=== PATIENT | male | born 1960 | race Caucasian/White ===

== ENCOUNTER 2017-01-03 21:45 | Emergency (ER) | payer BC ==
[2017-01-03] MEDS ORDERED: Sodium Chloride 0.9% 10 ML Syringe FLUSH PRN (22:15)
[2017-01-03] MEDS ORDERED: Sodium Chloride 0.9% 2.5 ML Syringe FLUSH PRN (22:15)
[2017-01-03] MEDS ORDERED: Ketorolac 30 MG/ML SDV IVPUSH ONE ×2 (22:15→22:17)
[2017-01-03] MEDS ORDERED: Ondansetron 4 MG/2 ML SDV IVPUSH ONE (22:17)
[2017-01-03] MEDS ORDERED: Sodium Chloride 0.9% 1,000 ML IV SCH (22:30)
--- NOTE | 2017-01-03 22:35 | EDM.PDOC ---
ED HPI RENAL/ - General Chief Complaint: Flank Pain Stated Complaint: KIDNEY STONE Time Seen by Provider: 01/03/17 21:56 Source of Information: Reports: Patient History Limitations: Reports: No limitations - History of Present Illness INITIAL COMMENTS - FREE TEXT/NARRATIVE: HISTORY AND PHYSICAL: History of present illness: [56-year-old male with a history of prior kidney stone now presents emergent [facility] complaining of sudden onset of right flank pain around 6:30 PM tonight. Patient states this feels just like prior kidney stone. He has he within a few minutes is not worse with movement and he gets no relief no matter what the position is. It does wax and wane. Denies abdominal or pelvic pain. No penile or scrotal pain. No febrile or prodromal symptoms prior to onset of pain. ] Review of systems: As per history of present illness and below otherwise all systems reviewed and negative. Past medical history: As per history of present illness and as reviewed below otherwise noncontributory. Surgical history: As per history of present illness and as reviewed below otherwise noncontributory. Social history: No reported history of drug or alcohol abuse. Family history: As per history of present illness and as reviewed below otherwise noncontributory. Physical exam: HEENT: Atraumatic, normocephalic, pupils reactive, negative for conjunctival pallor or scleral icterus, mucous membranes moist, throat clear, neck supple, nontender, trachea midline. Lungs: Clear to auscultation, breath sounds equal bilaterally, chest nontender. Heart: S1S2, regular, negative for clicks, rubs, or JVD. Abdomen: Soft, nondistended, nontender. Negative for masses or hepatosplenomegaly. Right costovertebral tenderness. Left low back/CVA normal nontender Pelvis: Stable nontender. Genitourinary: Deferred. Rectal: Deferred. Extremities: Atraumatic, negative for cords or calf pain. Neurovascular unremarkable. Neuro: Awake, alert, oriented. Cranial nerves grossly unremarkable. Cerebellum unremarkable. Motor and sensory unremarkable throughout. Exam nonfocal. Diagnostics: CT abdomen and pelvis pending] Therapeutics: Toradol and IV fluids antiemetic] Impression: [Ureteral colic Right flank pain Plan: [Signs and symptoms consistent with ureteral colic in a patient with a known history of the same. He is well-appearing nontoxic. Full workup pending including CTA. Feels improved after analgesia] 3 mm stone proximal ureter otherwise unremarkable. UA negative for infection. Microscopic hematuria only. Patient stable and comfortable on multiple reexamines. No further workup or treatment indicated. Patient and spouse agree with outpatient followup with PCP for reevaluation and referral to urology as needed. Flomax prescribed. Patient aware to use NSAIDs and [place] as needed. Strict return precautions given Definitive disposition and diagnosis as appropriate pending reevaluation and review of above. - Related Data Allergies/ADRs: Allergies Allergy/AdvReac Type Severity Reaction Status Date / Time No Known Allergies Allergy Verified 01/03/17 21:58 Home Meds: Home Meds Multivitamins [Tab-A-Heather] 1 tab PO DAILY 01/03/17 [History] Hydrocodone/Acetaminophen [[place] 5-325 Tablet] 1 each PO Q4H PRN #16 tablet 04/15 [Rx] Tamsulosin [Flomax] 0.4 mg PO ONETIME #10 cap.er 01/04/17 [Rx] Past Medical History - Past Health History Medical/Surgical History: Denies Medical/Surgical History Genitourinary History: Reports: Renal calculus Other Genitourinary History: right kidney stones - Infectious Disease History Infectious Disease History: Reports: Chicken pox, Measles, Mumps - Past Surgical History GI Surgical History: Reports: Hernia, abdominal Social & Family History - Family History Family Medical History: Noncontributory - Tobacco Use Smoking Status *Q: Never Smoker Second Hand Smoke Exposure: No - Caffeine Use Caffeine Use Comment: 1drink/2weeks - Alcohol Use Days Per Week of Alcohol Use: 4 Number of Drinks Per Day: 2 Total Drinks Per Week: 8 - Recreational Drug Use Recreational Drug Use: No ED ROS GENERAL - Review of Systems Review Of Systems: See Below (History of present illness) ED EXAM, RENAL/ - Physical Exam Exam: See Below (History of present illness) Course - Vital Signs Last Recorded V/S: Last Vital Signs Temp 36.4 C 01/04/17 01:29 Pulse 57 L 01/04/17 01:29 Resp 18 01/04/17 01:29 BP 143/81 H 01/04/17 01:29 Pulse Ox 95 01/04/17 01:29 - Orders/Labs/Meds Orders: Active Orders 24 hr Category Date Time Status Abdomen Pelvis w wo Cont [CT] Stat Exams 01/03/17 22:17 Ordered Peripheral IV Insertion Adult [OM.PC] Stat Oth 01/03/17 22:15 Ordered Labs: Laboratory Tests 01/03/17 01/03/17 01/03/17 Range/Units 22:00 22:10 22:10 WBC 11.31 H (4.0-11.0) K/uL RBC 4.87 (4.50-5.90) M/uL Hgb 13.7 (13.0-17.0) g/dL Hct 39.6 (38.0-50.0) % MCV 81.3 (80.0-98.0) fL MCH 28.1 (27.0-32.0) pg MCHC 34.6 (31.0-37.0) g/dL RDW Std Deviation 38.6 (28.0-62.0) fl RDW Coeff of [place] 13 (11.0-15.0) % Plt Count 89 L (150-400) K/uL MPV 10.80 (7.40-12.00) fL Neut % (Auto) 85.3 H (48.0-80.0) % Lymph % (Auto) 8.8 L (16.0-40.0) % [place] % (Auto) 5.4 (0.0-15.0) % Eos % (Auto) 0.3 (0.0-7.0) % Baso % (Auto) 0.2 (0.0-1.5) % Neut # (Auto) 9.7 H (1.4-5.7) K/uL Lymph # (Auto) 1.0 (0.6-2.4) K/uL [place] # (Auto) 0.6 (0.0-0.8) K/uL Eos # (Auto) 0.0 (0.0-0.7) K/uL Baso # (Auto) 0.0 (0.0-0.1) K/uL Nucleated RBC % 0.0 /100WBC Nucleated RBCs # 0 K/uL Sodium 138 (136-146) mmol/L Potassium 4.2 (3.5-5.1) mmol/L Chloride 107 (98-110) mmol/L Carbon Dioxide 21 (21-31) mmol/L BUN 25 H (6.0-23.0) mg/dL Creatinine 1.3 (0.6-1.5) mg/dL Est Cr Clr Drug Dosing 65.51 mL/min Estimated GFR (MDRD) 57.1 ml/min Glucose 116 H (60-110) mg/dL Calcium 8.8 (8.8-10.8) mg/dL Total Bilirubin 0.4 (0.1-1.5) mg/dL AST 25 (5-40) IU/L ALT 22 (8-54) IU/L Alkaline Phosphatase 46 (40-150) Total Protein 6.8 (6.0-8.0) g/dL Albumin 4.1 (3.5-5.0) g/dL Globulin 2.7 (2.0-3.5) g/dL Albumin/Globulin Ratio 1.5 (1.3-2.8) Lipase 15 (7-80) U/L Urine Color YELLOW Urine Appearance SLT CLOUDY Urine pH 6.5 (5.0-8.0) Ur Specific [place] 1.025 (1.001-1.035) Urine Protein NEGATIVE (NEGATIVE) mg/dL Urine Glucose (UA) NEGATIVE (NEGATIVE) mg/dL Urine Ketones NEGATIVE (NEGATIVE) mg/dL Urine Occult Blood LARGE H (NEGATIVE) Urine Nitrite NEGATIVE (NEGATIVE) Urine Bilirubin NEGATIVE (NEGATIVE) Urine Urobilinogen 0.2 (<2.0) EU/dL Ur Leukocyte Esterase NEGATIVE (NEGATIVE) Urine RBC 250-300 (0-2/HPF) Urine WBC 1-5 (0-5/HPF) Ur Epithelial Cells NOT SEEN (NONE-FEW) Urine Bacteria RARE (NEGATIVE) Meds: Medications Discontinued Medications Generic Name Dose Route Start Last Admin Trade Name Freq PRN Reason Stop Dose Admin Hydrocodone Bitart/Acetaminophen 1 tab 01/04/17 01:45 [place] 325-10 Mg PO 01/04/17 01:46 ONETIME ONE Hydrocodone Bitart/Acetaminophen 1 tab 01/04/17 01:40 01/04/17 01:55 [place] 325-5 Mg PO 01/04/17 01:41 1 tab ONETIME ONE Administration Hydromorphone HCl 0.5 mg 01/03/17 23:41 01/03/17 23:48 Dilaudid IVPUSH 01/03/17 23:42 0.5 mg ONETIME ONE Administration Sodium Chloride 1,000 mls @ 999 mls/hr 01/03/17 22:30 01/03/17 22:27 Normal Saline IV 999 mls/hr ASDIRECTED EITAN Administration Ketorolac Tromethamine 30 mg 01/03/17 22:15 01/03/17 22:29 Toradol IVPUSH 01/03/17 22:16 30 mg ONETIME ONE Administration Ketorolac Tromethamine 30 mg 01/03/17 22:17 Toradol IVPUSH 01/03/17 22:18 ONETIME ONE Ondansetron HCl 4 mg 01/03/17 22:17 01/03/17 22:27 Zofran IVPUSH 01/03/17 22:18 4 mg ONETIME ONE Administration Sodium Chloride 10 ml 01/03/17 22:15 Saline Flush FLUSH ASDIRECTED PRN Keep Vein Open Sodium Chloride 2.5 ml 01/03/17 22:15 Saline Flush FLUSH ASDIRECTED PRN Keep Vein Open Tamsulosin HCl 0.4 mg 01/04/17 01:46 01/04/17 01:54 Flomax PO 01/04/17 01:47 0.4 mg ONETIME ONE Administration Tamsulosin HCl Confirm 01/04/17 01:52 Flomax Administered 01/04/17 01:53 Dose 0.4 mg .ROUTE .STK-MED ONE Departure - Departure Time of Disposition: 01:37 Disposition: Home, Self-Care 01 Condition: good Clinical Impression: Ureterolithiasis, Ureteral colic, Microscopic hematuria Prescriptions: Hydrocodone/Acetaminophen [[place] 5-325 Tablet] 1 each PO Q4H PRN #16 tablet PRN Reason: Breakthrough pain Tamsulosin [Flomax] 0.4 mg PO ONETIME #10 cap.er Instructions: Kidney Stones, [id number] Referrals: PCP,None [Primary Care Provider] - Forms: ED Department Discharge Additional Instructions: Or passing a 3 mm kidney stone in your right ureter. Take ibuprofen 800 mg every 6 hours and [place] as needed for breakthrough pain. Finish Flomax as prescribed were taken into he passed the stone. 3 mm stone should pass spontaneously without difficulty or complication. Drink plenty of fluids. Return for uncontrolled pain or worsening pain with fevers. Followup with your DrGricelda for reevaluation and referral to urology as needed. - My Orders Last 24 Hours: My Active Orders 01/03/17 22:15 Peripheral IV Insertion Adult [OM.PC] Stat 01/03/17 22:17 Abdomen Pelvis w wo Cont [CT] Stat - Assessment/Plan Last 24 Hours: My Active Orders 01/03/17 22:15 Peripheral IV Insertion Adult [OM.PC] Stat 01/03/17 22:17 Abdomen Pelvis w wo Cont [CT] Stat
[2017-01-03] MEDS ORDERED: HYDROmorphone 1 MG/ML Syringe IVPUSH ONE (23:41)
[2017-01-04 01:29] VITALS: BP 143/81
[2017-01-04] MEDS ORDERED: Acetaminophen/HYDROcodone 325-5 MG Tab PO ONE (01:40)
[2017-01-04] MEDS ORDERED: Acetaminophen/HYDROcodone 325-10 MG Tab PO ONE (01:45)
[2017-01-04] MEDS ORDERED: Tamsulosin 0.4 MG Cap.ER PO ONE (01:46)
[2017-01-04] MEDS ORDERED: Tamsulosin 0.4 MG Cap.ER ONE (01:52)
--- NOTE | 2017-01-05 12:07 | CT ---
EXAM DATE: 01/03/17 PATIENT'S AGE: 56 Patient: EAN CEJA Facility: [place], [place] Site . Site : [id number] Study: CT Abdomen/Pelvis [id number]/[id number] 12:49:23 AM Ordering Physician: Vin Salinas Final Report: INDICATION: Abdominal pain. TECHNIQUE: CT abdomen and pelvis acquired without and with IV contrast. COMPARISON: CT abdomen pelvis January 29, 2014. FINDINGS: Lower chest: Unremarkable. Liver: Multiple cysts have not significantly changed. Spleen: Unremarkable. Pancreas: Unremarkable. Gallbladder and bile ducts: Unremarkable. Kidneys: A 3 mm stone in the proximal right ureter near the ureteropelvic junction causes mild hydronephrosis. Mild right perinephric stranding. No additional evidence of urolithiasis. Bilateral cysts are similar in appearance. Suspected left peripelvic cyst is unchanged. Adrenal glands: Unremarkable. GI tract: Colonic diverticulosis without evidence of acute diverticulitis. No bowel obstruction. Normal appendix. No free air or free fluid. Vascular structures: No abdominal aortic aneurysm. Lymph nodes: Unremarkable. Pelvic Organs: Unremarkable. Bones: No acute abnormality. IMPRESSION: A 3 mm stone in the proximal right ureter causing mild hydronephrosis. Dictated by Misael Aparicio MD @ 01/04/2017 1:24:20 AM Dictated by: Misael Aparicio MD @ 01/04/2017 01:24:33 (Electronic Signature) Report Signed by Proxy. [facility] CENTERKota
== END 2017-01-04 01:45 | disposition home or self-care (01) ==
LOC: MW.ED 21:45
DX: N20.1 Calculus of ureter (principal)
CPT/HCPCS: 36415; 74178; 80053; 81001; 83690; 85025; 96361; 96374; 96375; 99284; A9270; J1170; J1885; J2405; J7040